=== PATIENT | female | born 1945 | race Caucasian/White ===

== ENCOUNTER 2016-12-19 12:45 | Emergency (ER) | payer MEDICARE, OTHER ==
[~2016-12-19] VITALS: Ht 154.9 cm; Wt 54.5 kg
[2016-12-19 12:50] VITALS: Ht 154.9 cm; Wt 54.5 kg
[2016-12-19] MEDS ORDERED: KETOROLAC 15 MG INJ IM STA (14:58)
--- NOTE | 2016-12-19 16:32 | RADRPT ---
PROCEDURE: XR Chest. CLINICAL INDICATION: Left chest wall pain. TECHNIQUE: Single frontal view. COMPARISON: No prior study is available for comparison. FINDINGS: The lungs are clear. The heart size is normal. There is calcification in the aorta consistent with atherosclerosis. There is no pleural effusion. There is no pneumothorax. IMPRESSION: 1. Atherosclerosis. 2. Otherwise normal chest x-ray. RPTAT: QQ .Nilay Lemon MD, MD Date Time Electronically viewed and signed by .Nilay Lemon MD, on 12/19/2016 16:32 .R/
--- NOTE | 2016-12-19 16:33 | RADRPT ---
PROCEDURE: Xray left ribs. CLINICAL INDICATION: Left rib pain. TECHNIQUE: Three views of the left ribs. COMPARISON: None available FINDINGS: The left ribs are normal with no fracture or lytic lesion. Calcification is present in the aorta con sistent with atherosclerosis. There are degenerative changes of the spine. Surgical clips are presen t in the right upper quadrant of the abdomen. IMPRESSION: 1. Normal left ribs. 2. Degenerative changes of the spine. 3. Prior right upper quadrant abdomen surgery. 4. Atherosclerosis. RPTAT: QQ .Nilay Lemon MD, Date Time Electronically viewed and signed by .Nilay Lemon MD, on 12/19/2016 16:33 .R/
--- NOTE | 2016-12-19 17:37 | ERD ---
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 Daughter heard a crunching sound and is concerned that there may be a fracture. She has had chronic, nonproductive cough over the last several months but no shortness of breath. She denies other chest pain or palpitations. No abdominal pain, nausea vomiting. The leg pain or swelling. No fevers or chills. ROS All systems reviewed and are negative except as per history of present illness. Allergies Allergies: Coded Allergies: No Known Allergy (Unverified , 12/19/16) PMhx/Soc Reviewed in chart. As per HPI. Lives at home with family History of Surgery: Yes (Cholecystectomy) Anesthesia Reaction: No Hx Neurological Disorder: Yes (CVA, lower extremity weakness due to cervical stenosis and myelopathy) Hx Respiratory Disorders: No Hx Cardiac Disorders: Yes (Hypertension) Hx Psychiatric Problems: Yes (Michael) Hx Miscellaneous Medical Probl: Yes (Diabetes and hyperlipidemia) Hx Alcohol Use: No Hx Substance Use: No Hx Tobacco Use: No FmHx No sudden cardiac , stroke or cancer Physical Exam Vitals Vital Signs Date Time Temp Pulse Resp B/P Pulse Ox O2 Delivery O2 Flow Rate FiO2 12/19/16 12:50 98.8 73 20 195/93 98 Physical Exam Const: Alert, confused but in no acute distress. Head: Atraumatic Eyes: Normal Conjunctiva ENT: Normal External Ears, Nose and Mouth. Neck: Good range of motion. No JVD. Nontender. Resp: Clear to auscultation bilaterally Chest Wall: Left chest wall tenderness but no crepitus or deformity. No ecchymosis or bruising. Cardio: Regular rate and rhythm, no murmurs Abd: Soft, non tender, non distended. Normal bowel sounds Skin: No petechiae or rashes Back: No midline or flank tenderness Ext: No cyanosis, or edema Neur: Awake and alert. Confused Psych: Normal Mood and Affect Result Diagram: 12/19/16 1520 12/19/16 1520 Results 24 hrs Laboratory Tests Test 12/19/16 15:20 White Blood Count 8.710^3/ul Red Blood Count 4.5210^6/ul Hemoglobin 13.9g/dl Hematocrit 40.3% Mean Corpuscular Volume 89.2fl Mean Corpuscular Hemoglobin 30.8pg Mean Corpuscular Hemoglobin Concent 34.5g/dl Red Cell Distribution Width 11.9% Platelet Count 58766^3/UL Mean Platelet Volume 10.8fl Neutrophils % 70.3% Lymphocytes % 19.2% Monocytes % 9.5% Eosinophils % 0.5% Basophils % 0.3% Nucleated Red Blood Cells % 0.0/100WBC Neutrophils # 6.110^3/ul Lymphocytes # 1.710^3/ul Monocytes # 0.810^3/ul Eosinophils # 0.010^3/ul Basophils # 0.010^3/ul Nucleated Red Blood Cells # 0.010^3/ul Sodium Level 139mmol/L Potassium Level 4.0mmol/L Chloride Level 98mmol/L Carbon Dioxide Level 29mmol/L Anion Gap 16 Blood Urea Nitrogen 18mg/dl Creatinine 0.73mg/dl Glucose Level 375mg/dl Calcium Level 9.0mg/dl Current Medications Medications (Trade) Dose Ordered Sig/Rayo Route PRN Reason Start Time Stop Time Status Last Admin Dose Admin Ketorolac Tromethamine (Toradol) 15 mg ONCE STAT IM 12/19/16 14:58 12/19/16 15:06 DC 12/19/16 15:23 Procedures/MDM DOCUMENTS REVIEWED: ED nurse, no prior records. Discharge summary from [facility] provided by the patient's daughter. [employer] MAKIN-year-old female with history of hypertension, diabetes mellitus, CVA in 2008 with mild, residual left weakness, hyperlipidemia meningioma, dementia, and weakness of the lower extremities secondary to spinal stenosis and myelopathy brought to the ED by daughter for evaluation of several day history of left anterior mid rib pain which began after she was moved from the wheelchair to bed. No radiographic evidence of rib fracture. Lungs are clear without pneumothorax, effusion or signs of pulmonary contusion. Patient consistent with chest wall contusion. Pain decreased with ketorolac. Hyperglycemia but no DKA or HNS due to noncompliance as patient did not take her medications today. Stable for discharge with appropriate analgesics and outpatient follow-up as counseled. Counseled patient and family regarding diagnostic workup, diagnosis and need for followup. Understands to return to ED if symptoms recur, worsen or any other concerns. Departure Diagnosis: Primary Impression: Contusion of left chest wall Encounter type: initial encounter Qualified Code: S20.212A - Contusion of left chest wall, initial encounter Additional Impression: Diabetes mellitus out of control Diabetes mellitus type: type 2 Diabetes mellitus complication status: without complication Diabetes mellitus buttermaker continuous churn insulin use: without halfway use Qualified Code: E11.65 - Uncontrolled type 2 diabetes mellitus without complication, without long-term current use of insulin Condition: Stable MARIIA VELA MD Dec 19, 2016 17:37
[2016-12-19] MEDS ORDERED: TRAM50TA2 PO (17:41)
[2016-12-19 17:52] VITALS: BP 157/70; PULSE 90; RESP 18
== END 2016-12-19 17:55 | disposition home or self-care (01) ==
LOC: E/R 12:45
DX: S20.212A Contusion of left front wall of thorax, initial encounter (principal); E11.9 Type 2 diabetes mellitus without complications; I10 Essential (primary) hypertension; X58.XXXA Exposure to other specified factors, initial encounter; Y92.9 Unspecified place or not applicable; Z86.011 Personal history of benign neoplasm of the brain
CPT/HCPCS: 71010; 71100; 80048; 85025; 96372; 99284; J1885